=== PATIENT | male | born 1970 | race Caucasian/White ===

== ENCOUNTER 2017-11-07 18:58 | Emergency (ER) | payer BC ==
--- NOTE | 2017-11-07 19:05 | EDM.PDOC ---
ED HPI GENERAL MEDICAL PROBLEM - General Stated Complaint: SORE THROAT Time Seen by Provider: 11/07/17 19:04 Source of Information: Reports: Patient History Limitations: Reports: No Limitations - History of Present Illness INITIAL COMMENTS - FREE TEXT/NARRATIVE: Sore throat x 4 days,no cough.Has odynophagia Duration: Day(s): (4), Getting Worse Improves with: Reports: None Throat Pain Score (Numeric/FACES): 8 - Related Data Allergies Allergy/AdvReac Type Severity Reaction Status Date / Time No Known Allergies Allergy Verified 11/07/17 19:06 Home Meds: Home Meds metFORMIN [Glucophage] 1,000 mg PO BIDMEALS 11/07/17 [History] ED ROS ENT - Review of Systems Review Of Systems: ROS reveals no pertinent complaints other than HPI. ED EXAM, ENT - Physical Exam Exam: See Below Exam Limited By: No Limitations General Appearance: Alert, No Apparent Distress Ears: Normal External Exam Nose: Normal Inspection Mouth/Throat: Tonsillar Erythema, Tonsillar Exudates Course - Vital Signs Last Recorded V/S: Last Vital Signs Temp 98.3 F 11/07/17 19:02 Pulse 98 11/07/17 19:02 Resp 18 11/07/17 19:02 BP 144/83 H 11/07/17 19:02 Pulse Ox 99 11/07/17 19:02 - Orders/Labs/Meds Orders: Active Orders 24 hr Category Date Time Status STREP SCRN A RAPID W CULT CONF [RM] Stat Lab 11/07/17 19:08 Ordered Departure - Departure Time of Disposition: 19:26 Disposition: Home, Self-Care 01 Clinical Impression: Pharyngitis - Discharge Information Referrals: PCP,Not In Area [Primary Care Provider] - - Problem List & Annotations (1) Strep pharyngitis SNOMED Code(s): 71726140 Code(s): J02.0 - STREPTOCOCCAL PHARYNGITIS Status: Acute Current Visit: Yes - Problem List Review Problem List Initiated/Reviewed/Updated: Yes - My Orders Last 24 Hours: My Active Orders 11/07/17 19:08 STREP SCRN A RAPID W CULT CONF [RM] Stat - Assessment/Plan Last 24 Hours: My Active Orders 11/07/17 19:08 STREP SCRN A RAPID W CULT CONF [RM] Stat Plan: Amoxicillin 500 mg TID x 10d
[2017-11-07] MEDS ORDERED: Amoxicillin 500 MG Cap PO ONE (19:25)
== END 2017-11-07 19:35 | disposition home or self-care (01) ==
LOC: FB.ED 18:58
DX: J02.0 Streptococcal pharyngitis (principal)
CPT/HCPCS: 87880; 99283; A9270

== ENCOUNTER 2017-12-05 17:27 | Emergency (ER) | payer BC ==
--- NOTE | 2017-12-05 20:12 | EDM.PDOC ---
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 Complains of worsening pain and swelling. Recent x rays were negative,and oral antibiotics have not been helpful. - Related Data Allergies Allergy/AdvReac Type Severity Reaction Status Date / Time No Known Allergies Allergy Verified 11/07/17 19:06 Home Meds: Home Meds metFORMIN [Glucophage] 1,000 mg PO BIDMEALS 11/07/17 [History] Past Medical History HEENT History: Reports: Impaired Vision Endocrine/Metabolic History: Reports: Diabetes, Type II - Infectious Disease History Infectious Disease History: Reports: Chicken Pox Social & Family History - Family History Family Medical History: Noncontributory - Caffeine Use Caffeine Use: Reports: Soda Caffeine Use Comment: 6 cans per day ED ROS GENERAL - Review of Systems Review Of Systems: ROS reveals no pertinent complaints other than HPI. ED EXAM, SKIN/RASH Exam: See Below Text/Narrative:: Tender palmar aspect of left hand,warm. Exam Limited By: No Limitations General Appearance: Alert Course - Orders/Labs/Meds Orders: Active Orders 24 hr Category Date Time Status Extremity Non Vascular Lt [US] Stat Exams 12/05/17 19:57 Taken Departure - Departure Time of Disposition: 20:13 Disposition: Home, Self-Care 01 Clinical Impression: Foreign body (FB) in soft tissue - Discharge Information Referrals: PCP,Not In Area [Primary Care Provider] - - Problem List & Annotations (1) Foreign body (FB) in soft tissue SNOMED Code(s): 578304779 Code(s): M79.5 - RESIDUAL FOREIGN BODY IN SOFT TISSUE Status: Acute Current Visit: Yes - Problem List Review Problem List Initiated/Reviewed/Updated: Yes - My Orders Last 24 Hours: My Active Orders 12/05/17 19:57 Extremity Non Vascular Lt [US] Stat - Assessment/Plan Last 24 Hours: My Active Orders 12/05/17 19:57 Extremity Non Vascular Lt [US] Stat Plan: US did show some foreign material. I consulted Dr Arnett
--- NOTE | 2017-12-05 21:46 | OR ---
DATE OF OPERATION: 12/05/2017 SURGEON: Andreas Arnett MD HISTORY: This 47-year-old gentleman is seen in the emergency room at the request of Dr. Stevens for a foreign body in his left hand. Approximately 1 week ago, he got a large splinter in the palm of his hand from a piece of plywood. Apparently, he was seen in the clinic where this was anesthetized, but no foreign body was removed. He was placed on an antibiotic. He presents today with worsening pain, and an ultrasound was performed, which did show evidence of a large splinter. Insertion point is in the palm at the base of the 4th finger and extends towards the little finger. I recommended this area be anesthetized and explored, and he is agreeable. DESCRIPTION OF PROCEDURE: The area was prepped with Betadine and anesthetized with 1% Lidocaine with Epinephrine. An incision was made over the entrance point and hemostat was used to dissect and a large splinter measuring 3 cm in length was removed intact. This area initially had some cloudy fluid when I incised it and therefore will not close it. The area was dressed with antibiotic ointment and gauze and a Coban wrap that he will leave on until Thursday morning and then keep clean and covered with a Band-Aid and glove while at work. He will finish his antibiotic. My contact information at the clinic was given and he will notify me if he has any further problems. /[phone] [phone] EMILY/YESENIA GARCIA
--- NOTE | 2017-12-08 10:59 | US ---
INDICATION: Swelling at base of left fourth finger, question wood splinter. ULTRASOUND, NONVASCULAR, LEFT FOURTH FINGER: Multiple ultrasonic images were obtained, revealing an apparent wood splinter, measuring approximately 2.7 cm in maximum diameter, likely in the soft tissues, 2.4 x 9.2 mm deep to the skin. No increase in blood flow is seen in that area. No abnormal fluid collection was seen. MTDD
== END 2017-12-05 20:42 | disposition home or self-care (01) ==
LOC: FB.ED 17:27
DX: M79.5 Residual foreign body in soft tissue (principal); E11.9 Type 2 diabetes mellitus without complications
CPT/HCPCS: 76881-LT; 99283

== ENCOUNTER 2018-09-05 18:16 | Emergency (ER) | payer BC ==
[2018-09-05] MEDS ORDERED: Doxycycline 100 MG Tab PO ONE (19:56)
--- NOTE | 2018-09-05 20:02 | EDM.PDOC ---
ED HPI GENERAL MEDICAL PROBLEM - General Chief Complaint: Fever Stated Complaint: SKIN ULCERS FEVER Time Seen by Provider: 09/05/18 18:40 Source of Information: Reports: Patient History Limitations: Reports: No Limitations - History of Present Illness INITIAL COMMENTS - FREE TEXT/NARRATIVE: 48-year-old male who reports that yesterday he just did not feel well and he pretty much stayed in bed all day. He did not have any fever. He just felt tired. There were no body aches. He does have a chronic rash on his arms and legs and today he noticed that that rash seemed to be worse particularly on his legs and associated with some pustules. So today at 3 PM begin to feel that he had a fever and had chills and he also had some diffuse body aches. He has had no cough. He's had no nausea or vomiting. He's been eating and drinking normally. He is a diabetic but he has not checked and does not check his sugars generally. He did tell the nurse that he had been eating "crap" recently and he did not take his metformin today. He has had no sore throat. He's had no dysuria. He's had no cough or difficulty breathing. There has been no known tick exposure. He currently rates his pain as a 4/10. It is an aching pain that is throughout. He did measure a temperature of 99.2F at home today. There are no other associated signs or symptoms. There are no other modifying factors. Onset: Other (Yesterday) Duration: Getting Worse Location: Reports: Generalized (Body aches) Quality: Reports: Ache Severity: Moderate Improves with: Reports: Rest Worsens with: Reports: Movement Context: Reports: Other Associated Symptoms: Reports: Fever/Chills Treatments CASING GRADER: Reports: Other (see below) (Nothing) Generalized Pain Score (Numeric/FACES): 4 - Related Data Allergies Allergy/AdvReac Type Severity Reaction Status Date / Time No Known Allergies Allergy Verified 09/05/18 19:08 Home Meds: Home Meds metFORMIN [Glucophage] 1,000 mg PO BIDMEALS 11/07/17 [History] Doxycycline Hyclate 100 mg PO BID 14 Days #28 capsule 09/05/18 [Rx] Mupirocin Cream [Bactroban Crm] 30 gm TOP BID #1 tube 06/23/19 [Rx] Past Medical History HEENT History: Reports: Impaired Vision (Wears glasses) Endocrine/Metabolic History: Reports: Diabetes, Type II Dermatologic History: Reports: Other (See Below) (Skin rash that has been present since he was a child but worsening of this rash on his lower legs us chills over the past few days.) - Infectious Disease History Infectious Disease History: Reports: Chicken Pox - Past Surgical History GI Surgical History: Reports: Appendectomy Social & Family History - Family History Family Medical History: Noncontributory - Tobacco Use Smoking Status *Q: Light Tobacco Smoker Years of Tobacco use: 18 Packs/Tins Daily: 0 - Caffeine Use Caffeine Use: Reports: Coffee Caffeine Use Comment: 6 cans per day - Alcohol Use Alcohol Use History: Yes Alcohol Use Frequency: Weekly - Recreational Drug Use Recreational Drug Use: No - Living Situation & Occupation Living situation: Reports: Occupation: Employed (Truckdriver) ED ROS GENERAL - Review of Systems Review Of Systems: See Below Constitutional: Reports: Fever (Subjective), Chills, Malaise, Fatigue HEENT: Reports: No Symptoms Respiratory: Reports: No Symptoms Cardiovascular: Reports: No Symptoms GI/Abdominal: Reports: No Symptoms : Reports: No Symptoms Musculoskeletal: Reports: Other (Body aches) Skin: Reports: Rash Neurological: Reports: No Symptoms Hematologic/Lymphatic: Reports: No Symptoms Immunologic: Reports: No Symptoms ED EXAM, GENERAL - Physical Exam Exam: See Below Exam Limited By: Uncooperative General Appearance: Alert, Mild Distress Eye Exam: Bilateral Eye: EOMI, Normal Inspection, PERRL Ears: Normal External Exam Ear Exam: Bilateral Ear: Auricle Normal Nose: Normal Inspection, Normal Mucosa, No Blood Throat/Mouth: Normal Inspection, Normal Oropharynx, Normal Voice, No Airway Compromise Head: Atraumatic, Normocephalic Neck: Normal Inspection, Supple, Non-Tender, Full Range of Motion. No: Lymphadenopathy (R), Lymphadenopathy (L) Respiratory/Chest: No Respiratory Distress, Lungs Clear, Normal Breath Sounds, No Accessory Muscle Use, Chest Non-Tender Cardiovascular: Normal Peripheral Pulses, Regular Rate, Rhythm, No JVD Peripheral Pulses: 2+: Radial (L), Radial (R), Dorsalis Pedis (L), Dorsalis Pedis (R) GI/Abdominal: Normal Bowel Sounds, Soft, Non-Tender, No Organomegaly, No Distention, No Mass Back Exam: Normal Inspection Extremities: Normal Inspection, Normal Range of Motion, Non-Tender, No Pedal Edema, Normal Capillary Refill Neurological: Alert, Oriented, CN II-XII Intact, Normal Cognition, Normal Gait, No Motor/Sensory Deficits Skin Exam: Warm, Dry, Normal Color, Rash (On both legs that is oriented with pustules on the anterior right ankle and some on the posterior left leg and one on his scalp) Lymphatic: No Adenopathy Course - Vital Signs Last Recorded V/S: Last Vital Signs Temp 36.7 C 09/05/18 20:12 Pulse 83 09/05/18 20:12 Resp 16 09/05/18 20:12 BP 145/84 H 09/05/18 20:12 Pulse Ox 100 09/05/18 20:12 - Orders/Labs/Meds Labs: Laboratory Tests 09/05/18 09/05/18 09/05/18 Range/Units 18:30 19:15 19:15 WBC 13.7 H (4.5-12.0) X10-3/uL RBC 4.41 (4.30-5.75) x10(6)uL Hgb 14.5 (13.5-17.8) g/dL Hct 40.7 (30.0-51.3) % MCV 92.4 (80-96) fL MCH 32.9 (27.7-33.6) pg MCHC 35.6 H (32.2-35.4) g/dL RDW 12.1 (11.5-15.5) % Plt Count 202 (125-369) X10(3)uL MPV 8.3 (7.4-10.4) fL Neut % (Auto) 85.3 H (46-82) % Lymph % (Auto) 6.0 L (13-37) % [place] % (Auto) 5.7 (4-12) % Eos % (Auto) 2 (1.0-5.0) % Baso % (Auto) 1 (0-2) % Neut # (Auto) 11.7 H (1.6-8.3) # Lymph # (Auto) 0.8 (0.6-5.0) # [place] # (Auto) 0.8 (0.0-1.3) # Eos # (Auto) 0.3 (0.0-0.8) # Baso # (Auto) 0.1 (0.0-0.2) # Sodium 134 L (135-145) mmol/L Potassium 4.2 (3.5-5.3) mmol/L Chloride 98 L (100-110) mmol/L Carbon Dioxide 26 (21-32) mmol/L BUN 16 (7-18) mg/dL Creatinine 1.2 (0.70-1.30) mg/dL Est Cr Clr Drug Dosing 81.92 mL/min Estimated GFR (MDRD) > 60 (>60) BUN/Creatinine Ratio 13.3 (9-20) Glucose 300 H (80-116) mg/dL Calcium 9.7 (8.6-10.2) mg/dL Total Bilirubin 0.6 (0.1-1.3) mg/dL AST 8 (5-25) IU/L ALT 24 (12-36) U/L Alkaline Phosphatase 135 H (56-112) IU/L C-Reactive Protein (0.5-0.9) mg/dL Total Protein 8.1 H (6.0-8.0) g/dL Albumin 4.2 (3.5-5.2) g/dL Globulin 3.9 g/dL Albumin/Globulin Ratio 1.1 Urine Color Yellow (YELLOW) Urine Appearance Clear (CLEAR) Urine pH 6.5 (5.0-6.5) Ur Specific [place] 1.010 (1.010-1.025) Urine Protein Negative (NEGATIVE) mg/dL Urine Glucose (UA) >1000 H (NORMAL) mg/dL Urine Ketones Negative (NEGATIVE) mg/dL Urine Occult Blood Negative (NEGATIVE) Urine Nitrite Negative (NEGATIVE) Urine Bilirubin Negative (NEGATIVE) Urine Urobilinogen Normal (NEGATIVE) mg/dL Ur Leukocyte Esterase Negative (NEGATIVE) Urine RBC 0-5 (0-5) Urine WBC 0-5 (0-5) Ur Squamous Epith Cells Occasional (NS,R,O) Urine Bacteria Rare H (NS) 09/05/18 Range/Units 19:15 WBC (4.5-12.0) X10-3/uL RBC (4.30-5.75) x10(6)uL Hgb (13.5-17.8) g/dL Hct (30.0-51.3) % MCV (80-96) fL MCH (27.7-33.6) pg MCHC (32.2-35.4) g/dL RDW (11.5-15.5) % Plt Count (125-369) X10(3)uL MPV (7.4-10.4) fL Neut % (Auto) (46-82) % Lymph % (Auto) (13-37) % [place] % (Auto) (4-12) % Eos % (Auto) (1.0-5.0) % Baso % (Auto) (0-2) % Neut # (Auto) (1.6-8.3) # Lymph # (Auto) (0.6-5.0) # [place] # (Auto) (0.0-1.3) # Eos # (Auto) (0.0-0.8) # Baso # (Auto) (0.0-0.2) # Sodium (135-145) mmol/L Potassium (3.5-5.3) mmol/L Chloride (100-110) mmol/L Carbon Dioxide (21-32) mmol/L BUN (7-18) mg/dL Creatinine (0.70-1.30) mg/dL Est Cr Clr Drug Dosing mL/min Estimated GFR (MDRD) (>60) BUN/Creatinine Ratio (9-20) Glucose (80-116) mg/dL Calcium (8.6-10.2) mg/dL Total Bilirubin (0.1-1.3) mg/dL AST (5-25) IU/L ALT (12-36) U/L Alkaline Phosphatase (56-112) IU/L C-Reactive Protein 1.2 H (0.5-0.9) mg/dL Total Protein (6.0-8.0) g/dL Albumin (3.5-5.2) g/dL Globulin g/dL Albumin/Globulin Ratio Urine Color (YELLOW) Urine Appearance (CLEAR) Urine pH (5.0-6.5) Ur Specific [place] (1.010-1.025) Urine Protein (NEGATIVE) mg/dL Urine Glucose (UA) (NORMAL) mg/dL Urine Ketones (NEGATIVE) mg/dL Urine Occult Blood (NEGATIVE) Urine Nitrite (NEGATIVE) Urine Bilirubin (NEGATIVE) Urine Urobilinogen (NEGATIVE) mg/dL Ur Leukocyte Esterase (NEGATIVE) Urine RBC (0-5) Urine WBC (0-5) Ur Squamous Epith Cells (NS,R,O) Urine Bacteria (NS) Meds: Medications Discontinued Medications Generic Name Dose Route Start Last Admin Trade Name Marilee PRN Reason Stop Dose Admin Doxycycline Hyclate 200 mg 09/05/18 19:56 09/05/18 20:06 Vibra-Tabs PO 09/05/18 19:57 200 mg ONETIME ONE Administration - Re-Assessments/Exams Free Text/Narrative Re-Assessment/Exam: 09/05/18 19:57: Patient's lab tests show an elevated white blood cell count and a mildly elevated CRP. His urinalysis was negative. A Lyme test is pending. His blood glucose is 300. He has no fever at this point and his vital signs are normal. He does have him evidence of skin infection and I will treat him with doxycycline for this. I will also treat him with the doxycycline for 14 days because even if the Lyme screen is negative and even without known tick exposure this could be Lyme disease and a 14 day treatment would cover that as well. I have urged him to follow-up with his primary doctor this week. Departure - Departure Time of Disposition: 20:05 Disposition: Home, Self-Care 01 Condition: Good Clinical Impression: Skin rash, History of fever, Chills Diabetes mellitus type 2, uncontrolled Qualifiers: Glycemic state: with hyperglycemia Qualified Code(s): E11.65 - Type 2 diabetes mellitus with hyperglycemia - Discharge Information Prescriptions: Doxycycline Hyclate 100 mg PO BID 14 Days #28 capsule Mupirocin Cream [Bactroban Crm] 30 gm TOP BID #1 tube Instructions: Type 2 Diabetes Mellitus, Self Care, Adult, [id number] Referrals: PCP,None [Primary Care Provider] - Forms: ED Department Discharge Additional Instructions: I am unsure of the cause of your subjective fever and chills with malaise. The skin rash is a potential source. You could also have Lyme disease. Your blood tests did have elevation in inflammation markers and was consistent with there being an infection. You should rest and you should drink plenty of fluids. No work for the next few days. Clean the is of rash with soap and water and apply the Bactroban cream twice daily. Other medication as prescribed (doxycycline 100 mg). Take probiotics or eat yogurt daily while you are on the antibiotics. Use SPF 50 sunscreen on sun exposed areas while you are on the antibiotics. You should also avoid sun exposure while you are on the antibiotics. Take ibuprofen and Tylenol as needed for fever or pain. Follow-up with your primary doctor this week for recheck. Back to the emergency department for high fever, vomiting , abdominal pain, trouble breathing or any other concerning sign or symptom.
== END 2018-09-05 20:22 | disposition home or self-care (01) ==
LOC: FB.ED 18:16
DX: R21 Rash and other nonspecific skin eruption (principal); R68.83 Chills (without fever); E11.65 Type 2 diabetes mellitus with hyperglycemia; F17.210 Nicotine dependence, cigarettes, uncomplicated; Z79.84 Long term (current) use of oral hypoglycemic drugs
CPT/HCPCS: 36415; 80053; 81001; 85025; 86140; 99283; A9270

== ENCOUNTER 2020-10-10 09:52 | Emergency (ER) | payer BC ==
--- NOTE | 2020-10-10 11:30 | EDM.PDOC ---
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, otherwise he "is walking out of here," I explained that work restrictions would be up to Dr Torres no fever, did have some drainage in his undercloths yesterday, not very much Right Buttock Pain Score (Numeric/FACES): 8 - Related Data Allergies Allergy/AdvReac Type Severity Reaction Status Date / Time No Known Allergies Allergy Verified 09/05/18 19:08 Home Meds: Home Meds metFORMIN [Glucophage] 1,000 mg PO BIDMEALS 11/07/17 [History] Amoxicillin/Potassium Clav [Augmentin 875-125 Tablet] 1 each PO BID #20 tablet 10/10/20 [Rx] Past Medical History HEENT History: Reports: Impaired Vision Endocrine/Metabolic History: Reports: Diabetes, Type II Dermatologic History: Reports: Other (See Below) Other Dermatologic History: rash to right ankle and left leg. - Infectious Disease History Infectious Disease History: Reports: Chicken Pox - Past Surgical History GI Surgical History: Reports: Appendectomy Social & Family History - Family History Family Medical History: No Pertinent Family History - Tobacco Use Tobacco Use Status *Q: Former Tobacco User Used Tobacco, but Quit: Yes Month/Year Tobacco Last Used: 09/2019 - Caffeine Use Caffeine Use: Reports: Coffee, Energy Drinks Caffeine Use Comment: 6 cans per day - Recreational Drug Use Recreational Drug Use: No - Living Situation & Occupation Living situation: Reports: Occupation: Employed (Truckdriver) ED ROS GENERAL - Review of Systems Review Of Systems: See Below Constitutional: Reports: No Symptoms HEENT: Reports: No Symptoms Respiratory: Reports: No Symptoms Cardiovascular: Reports: No Symptoms Endocrine: Reports: No Symptoms GI/Abdominal: Reports: No Symptoms : Reports: No Symptoms Musculoskeletal: Reports: No Symptoms Skin: Reports: Wound Neurological: Reports: No Symptoms Psychiatric: Reports: No Symptoms Hematologic/Lymphatic: Reports: No Symptoms Immunologic: Reports: No Symptoms ED EXAM, GENERAL - Physical Exam Exam: See Below Free Text/Narrative:: both buttocks have dryness and chapping and mild discoloration along ridge b/l one drop of white pus is oozing through a pinhole at apex of abscess at ridge, betadaine x 10, alc prep x 4, 1% lido with epi with #30 needle #11 blade, 3 cm skin incision, probed to depth of 4 cm with needle fowler, firm pressure to break apart adhesions which pt tolerated very well, considerable subc adhesions only 1 ml of sim pus total, abscess irrigated with 100 ml of NS with return of blood tinged fluid and a few clots 1/2" packing placed, about 12" in length, tolerated well Exam Limited By: No Limitations General Appearance: Alert, WD/WN, Other (sitting leaning on his left buttocks) Head: Atraumatic Respiratory/Chest: No Respiratory Distress Rectal (Males) Exam: Other (perianal exam wnl, MARLEN not done, however perianal tissue is soft and NT) Back Exam: Normal Inspection, Full Range of Motion. No: CVA Tenderness (L) Neurological: Alert, Oriented, CN II-XII Intact, Normal Cognition, No Motor/Sensory Deficits Psychiatric: Normal Affect, Normal Mood Skin Exam: Other (L buttock with a 10 x 8 x 6 cm firm indurated subc area, freely mobile, 5 cm removed from anal verge, points at ridge on buttocks posteriorly at place of maximal contact (see above)) Lymphatic: No Adenopathy Course - Vital Signs Last Recorded V/S: Last Vital Signs Temp 37.2 C 10/10/20 10:05 Pulse 93 10/10/20 10:05 Resp 15 10/10/20 10:05 BP 131/93 H 10/10/20 10:05 Pulse Ox 98 10/10/20 10:05 - Orders/Labs/Meds Orders: Active Orders 24 hr Category Date Time Status CULTURE ROUTINE + SMEAR [RM] Stat Lab 10/10/20 11:08 Ordered - Re-Assessments/Exams Free Text/Narrative Re-Assessment/Exam: 10/10/20 11:55 some d/c the day before in undercloths altho minimal per pt little secretions now no clinical evidence of Rd's or perirectal abscess or underlying fistula tract likely has had smoldering recurrent infections over several years given amount of scar tissues, may need eventually removal of scar tissue d/w Dr Torres twice who plans to see pt in clinic in 2d pt agrees not to drive for next 4 days and will discuss driving further at f/u Departure - Departure Time of Disposition: 11:22 Disposition: Home, Self-Care 01 Condition: Good Clinical Impression: Abscess of right buttock - Discharge Information *PRESCRIPTION DRUG MONITORING PROGRAM REVIEWED*: Not Applicable *COPY OF PRESCRIPTION DRUG MONITORING REPORT IN PATIENT RYAN: Not Applicable Prescriptions: Amoxicillin/Potassium Clav [Augmentin 875-125 Tablet] 1 each PO BID #20 tablet Instructions: Skin Abscess Additional Instructions: Avoid sitting on right buttocks. Obtain a cushioned donut for sitting. You can likely order one through a [employer]. You can also make your own with an 8-10 inch thick piece of foam that is cut out in the middle, which you can cover with cloth. Soak in warm water (sitz bath) for 5 minutes 3 times a day. Call the clinic and get a time to see Dr Torres on Thursday afternoon. Avoid pulling out the backing. Change the dressing as needed 2-3 times a day. For infection, take Augmentin 875/125 mg 1 tab 2 times a day for 10 days, 2 doses today. If the infection is getting worse (increase red or swell or pain or warm or fever), return to the Emergency Department. As there is quite a bit of scar tissue underneath the skin, it is possible that Dr Torres may eventually need to surgically remove some of the scarring. Sepsis Event Note (ED) - Evaluation Sepsis Screening Result: No Definite Risk - Focused Exam Vital Signs: Vital Signs Temp Pulse Resp BP Pulse Ox 10/10/20 10:05 37.2 C 93 15 131/93 H 98 - My Orders Last 24 Hours: My Active Orders 10/10/20 11:08 CULTURE ROUTINE + SMEAR [RM] Stat - Assessment/Plan Last 24 Hours: My Active Orders 10/10/20 11:08 CULTURE ROUTINE + SMEAR [RM] Stat
== END 2020-10-10 11:42 | disposition home or self-care (01) ==
LOC: FB.ED 09:52
DX: L02.31 Cutaneous abscess of buttock (principal); E11.9 Type 2 diabetes mellitus without complications; Z87.891 Personal history of nicotine dependence; Z79.84 Long term (current) use of oral hypoglycemic drugs
CPT/HCPCS: 10060; 36415; 85025; 87070; 87205; 99283-25

== ENCOUNTER 2021-07-20 12:20 | Emergency (ER) | payer BC | END 2021-07-20 14:47 | disposition home or self-care (01) | LOC: FB.ED 12:20 | DX: R42 Dizziness and giddiness (principal); R00.0 Tachycardia, unspecified; E11.9 Type 2 diabetes mellitus without complications; E83.52 Hypercalcemia; Z79.899 Other long term (current) drug therapy; Z20.822 Contact with and (suspected) exposure to COVID-19 | CPT/HCPCS: 36415; 71046; 80053; 84484; 85025; 93005; 93010; 99282; 99284-25; U0002 ==

== ENCOUNTER 2024-07-14 20:09 | Emergency (ER) | payer SELFPAY ==
[2024-07-14 20:56] LABS: BASOPHILS PERCENT AUTO 0.2 % (0.3-3.8); EOSINOPHILS ABSOLUTE AUTO 0.5 x10-3/uL (0.0-0.6); EOSINOPHILS PERCENT AUTO 5.4 % (0.1-6.8); HEMATOCRIT 38.8 % (38.3-50.1); HEMOGLOBIN 13.2 g/dL (12.9-17.7); LYMPHOCYTES ABSOLUTE AUTO 1.4 x10-3/uL (0.5-4.5); MEAN CORPUSCULAR HEMOGLOBIN 32.7 pg (27.0-33.3); MEAN CORPUSCULAR HGB CONC 34.1 g/dL (28.7-35.3); MEAN PLATELET VOLUME 7.7 fL (6.7-11.0); MONOCYTES ABSOLUTE AUTO 0.8 x10-3/uL (0.0-1.2); MONOCYTES PERCENT AUTO 8.6 % (5.5-15.2); NEUTROPHILS ABSOLUTE AUTO 6.5 x10-3/uL (1.7-6.9); NEUTROPHILS PERCENT AUTO 70.8 % (40.3-71.8); PLATELET COUNT,PLT 273 x10(3)uL (117-477); RED BLOOD CELL COUNT 4.04 x10(6)uL (3.90-5.90); RED CELL DISTRIBUTION WIDTH 12.9 % (12.4-15.0); WHITE BLOOD CELL COUNT,WBC 9.1 x10-3/uL (3.2-10.1)
[2024-07-14 21:02] LABS: A/G RATIO 0.8; ALANINE AMINOTRANSFERASE,ALT 18 U/L (12-36); ALBUMIN 3.7 g/dL (3.5-5.2); ALKALINE PHOSPHATASE 136 IU/L (56-112); ASPARTATE AMNIOTRANSFERASE,AST 9 IU/L (5-25); BILIRUBIN TOTAL 0.5 mg/dL (0.1-1.3); BLOOD UREA NITROGEN,BUN 16 mg/dL (7-18); BUN/CREATININE RATIO 13.3 (9-20); CALCIUM 9.4 mg/dL (8.6-10.2); CARBON DIOXIDE,CO2 28 mmol/L (21-32); CHLORIDE,CL 95 mmol/L (100-110); CREATININE 1.2 mg/dL (0.70-1.30); EST CRCL DRUG DOSING (CG) 76.69 mL/min; ESTIMATED GFR 73 mL/min (>60); POTASSIUM,K 4.5 mmol/L (3.5-5.3); PROTEIN TOTAL,TP 8.1 g/dL (6.0-8.0); SODIUM,NA 132 mmol/L (135-145)
[2024-07-14 21:13] LABS: GLUCOSE RANDOM 436 mg/dL (80-116)
== END 2024-07-14 21:55 | disposition home or self-care (01) ==
LOC: FB.ED 20:09
DX: E11.40 Type 2 diabetes mellitus with diabetic neuropathy, unspecified (principal); F17.200 Nicotine dependence, unspecified, uncomplicated; M19.90 Unspecified osteoarthritis, unspecified site; Z79.899 Other long term (current) drug therapy; Z86.16 Personal history of COVID-19; Z90.49 Acquired absence of other specified parts of digestive tract
CPT/HCPCS: 36415; 70486; 80053; 83605; 85025; 86140; 99284